=== PATIENT | male | born 1955 | race Two or more races ===

== ENCOUNTER 2019-01-14 12:20 | Emergency (ER) | payer OTHER ==
[2019-01-14 12:26] VITALS: TEMP 98.3; BMI 26.3
--- NOTE | 2019-01-14 12:52 | PDOC ---
History of Present Illness - General Chief Complaint: Pain Stated Complaint: left knee pain Time Seen by Provider: 01/14/19 12:25 History Source: Patient Exam Limitations: No Limitations - History of Present Illness Initial Comments: 01/14/19 12:50 63M with PMH of HTN and HLD who presents with L knee pain. The patient states that he was in his normal state of health yesterday and woke up this morning with L knee pain. He describes a sharp, nonradiating, atraumatic knee pain which is gradually worsening. He denies changes in diet, alcohol, trauma, and extraneous activity on his knee. He denies fever, chills, redness, swelling, CP , and SOB. He has never had these symptoms in the past. Past History - Past Medical History Allergies/Adverse Reactions: Allergies Allergy/AdvReac Type Severity Reaction Status Date / Time No Known Allergies Allergy Verified 01/14/19 12:22 Home Medications: Ambulatory Orders Atorvastatin Ca [Lipitor] 20 mg PO HS 01/14/19 Metoprolol Tartrate 50 mg PO HS 01/14/19 COPD: No HTN: Yes Hypercholesterolemia: Yes - Suicide/Smoking/Psychosocial Hx Smoking History: Never smoked Hx Alcohol Use: No Drug/Substance Use Hx: No Review of Systems - Review of Systems Able to Perform ROS?: Yes Comments:: 01/14/19 13:22 GENERAL/CONSTITUTIONAL: No fever or chills. No weakness. HEAD, EYES, EARS, NOSE AND THROAT: No change in vision. No ear pain or discharge. No sore throat. CARDIOVASCULAR: No chest pain, palpitations, or lightheadedness. RESPIRATORY: No cough, wheezing, shortness of breath, or hemoptysis. GASTROINTESTINAL: No nausea, vomiting, diarrhea, constipation, or abdominal pain. GENITOURINARY: No dysuria, frequency, hematuria, or change in urination. MUSCULOSKELETAL: + for L knee pain. No muscle swelling or pain. No neck or back pain. SKIN: No rash or lesions. NEUROLOGIC: No headache, numbness, tingling, focal weakness, loss of consciousness, or change in strength/sensation. Is the patient limited [place]adian proficient: No *Physical Exam - Vital Signs Last Vital Signs Temp Pulse Resp BP Pulse Ox 98.3 F 75 18 191/111 H 99 01/14/19 12:21 01/14/19 12:21 01/14/19 12:21 01/14/19 12:21 01/14/19 12:21 - Physical Exam Comments: 01/14/19 13:28 GENERAL: Well developed, well nourished. Awake and alert. No acute distress. HEENT: Normocephalic, atraumatic. Hearing grossly normal. Moist mucous membranes. MUSCULOSKELETAL: TTP over patellar tendon with mild swelling. No popliteal TTP. No erythema or warmth to touch. Normal passive range of motion at all joints. EXTREMITIES: No cyanosis. No clubbing. No edema. No calf tenderness or swelling. SKIN: Warm and dry. Normal capillary refill. No rashes. No jaundice. NEUROLOGICAL: Alert, awake, appropriate. Cranial nerves 2-12 grossly intact. Normal speech. Gait is ataxic. PSYCHIATRIC: Cooperative. Good eye contact. Appropriate mood and affect. ED Treatment Course - RADIOLOGY Radiology Studies Ordered: Category Date Time Status KNEE 3 POS-LEFT [RAD] Stat Radiology 01/14/19 12:26 Ordered Medical Decision Making - Medical Decision Making 01/14/19 13:31 63M with PMH of HTN and HLD who presents with atraumatic L knee pain concerning for arthritis, gout, pseudogout, patellar tendonitis. Pending XR. 01/14/19 14:11 XR negative for fracture. Pt placed in knee immobilizer with crutches. Will f/u with ortho. *DC/Admit/Observation/Transfer Diagnosis at time of Disposition: Knee pain, acute Qualifiers: Laterality: left Qualified Code(s): M25.562 - Pain in left knee - Discharge Dispostion Disposition: HOME Condition at time of disposition: Stable Decision to Admit order: No - Referrals Referrals: Zarina Voss MD [Primary Care Provider] - Forrest Roberts DO [Staff Physician] - Dale Hernandez MD [Staff Physician] - Herberth Espinoza MD [Staff Physician] - - Patient Instructions Printed Discharge Instructions: DI for Knee Pain Additional Instructions: Your ER visit is not complete until your follow up with your primary care physician. Please follow up with your primary care physician in 1-2 days. Please follow up with one of the orthopedic surgeons listed in 1 week for your knee. Please return to the ER if you have any signs or symptoms of chest pain, shortness of breath, uncontrollable fever, chills, nausea, vomiting, numbness, tingling, or weakness in any part of your body, changes in vision, or slurred speech. Please return to the ER if symptoms persist, worsen, or new symptoms arise. - Post Discharge Activity
[2019-01-14] MEDS ORDERED: KETOROLAC TROMETHAMINE 60 MG/2 ML VIAL IM ONE (13:05)
--- NOTE | 2019-01-14 13:11 | PDOC ---
Attending Attestation - Resident Resident Name: Carter Pittman - ED Attending Attestation I have performed the following: I have examined & evaluated the patient, The case was reviewed & discussed with the resident, I agree w/resident's findings & plan, Exceptions are as noted - HPI HPI: 01/14/19 14:07 63yo male with L knee pain. No trauma. Pain over the patella tendon and at the insertion site. No redness mild soft tissue swelling, no effusion palpated. No calf or posterior knee ttp. No recent travel. No rashes. No pets. No hiking. No other complaints. - Physicial Exam PE: 01/14/19 14:08 Gen: aaox3, uncomfortable heart: +s1s2 reg lungs: cta b/l abd: soft, nt/nd +bs ext: L knee ttp anteriorly over the patella tendon, limited ROM secondary to pain, but is able to range the knee. sensation intact, no calf ttp, no ttp along the tibia or fibula, ttp over the patella tendon, but tendon intact - Medical Decision Making 01/14/19 13:11 I, Dr. Ely Almanza, DO, attest that this document has been prepared under my direction and personally reviewed by me in its entirety. I further attest, that it accurately reflects all work, treatment, procedures and medical decision -making performed by me. 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
[2019-01-14] MEDS ORDERED: KETOROLAC TROMETHAMINE 60 MG/2 ML VIAL ONE (13:14)
[2019-01-14] MEDS ORDERED: LISINOPRIL 20 MG TABLET (FP) PO ONE (14:11)
[2019-01-14 14:14] VITALS: BP 160/94; PULSE 64
[2019-01-14] MEDS ORDERED: LISINOPRIL 5 MG TABLET (FP) ONE (14:15)
== END 2019-01-14 14:24 | disposition home or self-care (01) ==
LOC: FER 12:20
PROC: 3E0233Z Introduction of Anti-inflammatory into Muscle, Percutaneous Approach (ICD-10-PCS; principal; 2019-01-14)
DX: M25.562 Pain in left knee (principal); I10 Essential (primary) hypertension; E78.5 Hyperlipidemia, unspecified
CPT/HCPCS: 73562-TC-LT-FY; 99282-25

== ENCOUNTER 2019-05-19 17:05 | Emergency (ER) | payer OTHER ==
[2019-05-19 17:27] VITALS: TEMP 99.1; BMI 25.8
[2019-05-19] MEDS ORDERED: KETOROLAC TROMETHAMINE 30 MG/1 ML VIAL IVPUSH ONE (17:54)
[2019-05-19] MEDS ORDERED: KETOROLAC TROMETHAMINE 30 MG/1 ML VIAL ONE (18:07)
[2019-05-19 18:21] LABS: BASO % 0.5 % (0-2.0); EOS % 0.7 % (0-4.5); HEMATOCRIT 46.7 % (35.4-49); HEMOGLOBIN 15.6 GM/dl (11.7-16.9); MCH 30.1 pg (25.7-33.7); MCHC 33.4 g/dl (32.0-35.9); MEAN CELL VOLUME 90.2 fl (80-96); MONO % 4.5 % (3.8-10.2); NEUT % 76.3 % (42.8-82.8); PLATELET COUNT 217 K/MM3 (134-434); RBC 5.17 M/mm3 (4.00-5.60); RDW 12.6 % (11.9-15.9); WHITE BLOOD COUNT 8.1 K/mm3 (4.0-10.8)
[2019-05-19 18:29] LABS: ALBUMIN 4.1 g/dl (3.4-5.0); BILIRUBIN,TOTAL 1.1 mg/dl (0.2-1); CALCIUM 9.6 mg/dl (8.5-10); CREATININE 1.2 mg/dl (0.55-1.3); POTASSIUM 3.7 mmol/L (3.5-5.1)
[2019-05-19 18:38] LABS: EPITHELIAL CELLS FEW /hpf
--- NOTE | 2019-05-19 18:56 | PDOC ---
Documentation entered by Catrina Polanco SCRIBE, acting as scribe for Devorah Marino MD. Devorah Marino MD: This documentation has been prepared by the scribe, Catrina Polanco SCRIBE, under my direction and personally reviewed by me in its entirety. I confirm that the documentation accurately reflects all work, treatment, procedures, and medical decision making performed by me. History of Present Illness - General Chief Complaint: Pain Stated Complaint: ABDOMINAL PAIN History Source: Patient Exam Limitations: No Limitations - History of Present Illness Initial Comments: 05/19/19 18:28 The patient is a 63-year-old male, with a past medical history of HTN and HLD, who presents to the ED with suprapubic pain and dysuria that began last night. He denies any penile discharge or testicular pain. Denies any hematuria or back pain. The patient denies any fevers, chills, nausea, vomiting, diarrhea, or constipation. Denies any chest pain, palpitations, or shortness of breath. Allergies: NKA Past History - Past Medical History Allergies/Adverse Reactions: Allergies Allergy/AdvReac Type Severity Reaction Status Date / Time No Known Allergies Allergy Verified 01/14/19 12:22 Home Medications: Ambulatory Orders Atorvastatin Ca [Lipitor] 20 mg PO HS 01/14/19 Metoprolol Tartrate 50 mg PO HS 01/14/19 COPD: No HTN: Yes Hypercholesterolemia: Yes - Suicide/Smoking/Psychosocial Hx Smoking History: Never smoked Hx Alcohol Use: No Drug/Substance Use Hx: No Review of Systems - Review of Systems Able to Perform ROS?: Yes Comments:: 05/19/19 18:29 GENERAL/CONSTITUTIONAL: No fever or chills. No weakness. HEAD, EYES, EARS, NOSE AND THROAT: No change in vision. No ear pain or discharge. No sore throat. CARDIOVASCULAR: No chest pain or shortness of breath. RESPIRATORY: No cough, wheezing, or hemoptysis. GASTROINTESTINAL: (+)Lower abdominal pain. No nausea, vomiting, diarrhea or constipation. GENITOURINARY: (+)Dysuria. No frequency. MUSCULOSKELETAL: No joint or muscle swelling or pain. No neck or back pain. SKIN: No rash NEUROLOGIC: No headache, vertigo, loss of consciousness, or change in strength/ sensation. ENDOCRINE: No increased thirst. No abnormal weight change. HEMATOLOGIC/LYMPHATIC: No anemia, easy bleeding, or history of blood clots. ALLERGIC/IMMUNOLOGIC: No hives or skin allergy. *Physical Exam - Vital Signs Last Vital Signs Temp Pulse Resp BP Pulse Ox 99.1 F 90 16 190/104 H 98 05/19/19 17:16 05/19/19 17:16 05/19/19 17:16 05/19/19 17:16 05/19/19 17:16 - Physical Exam Comments: 05/19/19 18:31 GENERAL: Awake, alert, and fully oriented, in no acute distress HEAD: No signs of trauma EYES: PERRLA, EOMI, sclera anicteric, conjunctiva clear ENT: Auricles normal inspection, hearing grossly normal, nares patent, oropharynx clear without exudates. Moist mucosa NECK: Normal ROM, supple, no lymphadenopathy, JVD, or masses LUNGS: Breath sounds equal, clear to auscultation bilaterally. No wheezes, and no crackles HEART: Regular rate and rhythm, normal S1 and S2, no murmurs, rubs or gallops ABDOMEN: (+)Suprapubic tenderness, LT > RT. Soft, normoactive bowel sounds. No guarding, no rebound. No masses EXTREMITIES: Normal range of motion, no edema. No clubbing or cyanosis. No cords, erythema, or tenderness NEUROLOGICAL: Cranial nerves II through XII grossly intact. Normal speech. SKIN: Warm, Dry, normal turgor, no rashes or lesions noted. ED Treatment Course - LABORATORY CBC & Chemistry Diagram: 05/19/19 18:00 05/19/19 18:00 - ADDITIONAL ORDERS Additional order review: Laboratory Results 05/19/19 05/19/19 18:00 18:00 Sodium 134 L Potassium 3.7 Chloride 100 Carbon Dioxide 25 Anion Gap 9 BUN 18.0 Creatinine 1.2 Est GFR (CKD-EPI)AfAm 74.66 Est GFR (CKD-EPI)NonAf 64.42 Random Glucose 222 H Calcium 9.6 Total Bilirubin 1.1 H AST 23 ALT 33 Alkaline Phosphatase 69 Total Protein 7.0 Albumin 4.1 Urine Color Yellow Urine Appearance Clear Urine pH 5.5 Urine Protein Negative Urine Glucose (UA) 1+ Urine Ketones Negative Urine Blood 3+ H Urine Nitrite Negative Urine Bilirubin Negative Urine Urobilinogen 0.2 Ur Leukocyte Esterase Trace H Urine RBC 5-10 Urine WBC 2-5 Ur Transition Epith Cell Few 05/19/19 18:00 RBC 5.17 MCV 90.2 MCHC 33.4 RDW 12.6 MPV 9.0 Neutrophils % 76.3 Lymphocytes % 18.0 Monocytes % 4.5 Eosinophils % 0.7 Basophils % 0.5 - RADIOLOGY Radiology Studies Ordered: Category Date Time Status ABDOMEN & PELVIS CT W/O CONTR [CT] Stat CT Scan 05/19/19 18:24 Ordered - Medications Given in the ED: ED Medications Discontinued Medications Generic Name Dose Route Start Last Admin Trade Name Freq PRN Reason Stop Dose Admin Ketorolac Tromethamine 30 mg 05/19/19 17:54 05/19/19 18:09 Toradol Injection - IVPUSH 05/19/19 17:55 30 mg ONCE ONE Administration Medical Decision Making - Medical Decision Making 05/19/19 18:46 Pt presents to the ED complaining of a one day history of suprapubic pain and dysuria. Differential included UTI, nephrolithiasis, less likely other intraabdominal pathology. Will check labs, UA and CT non contrast to rule out stone. Will give pain control. *DC/Admit/Observation/Transfer - Discharge Dispostion Condition at time of disposition: Good - Referrals Referrals: Zarina Voss MD [Primary Care Provider] - - Patient Instructions - Post Discharge Activity
[2019-05-19] MEDS ORDERED: ONDANSETRON 4 MG/2 ML VIAL IVPUSH ONE (20:28)
[2019-05-19] MEDS ORDERED: ONDANSETRON 4 MG/2 ML VIAL ONE (20:30)
[2019-05-19] MEDS ORDERED: CEFTRIAXONE 2 GM-D5W BAG 2 GM/50 ML BAG IVPB ONE (20:30)
--- NOTE | 2019-05-19 22:06 | PDOC ---
*Physical Exam - Vital Signs Last Vital Signs Temp Pulse Resp BP Pulse Ox 99.1 F 90 16 190/104 H 98 05/19/19 17:16 05/19/19 17:16 05/19/19 17:16 05/19/19 17:16 05/19/19 17:16 ED Treatment Course - LABORATORY CBC & Chemistry Diagram: 05/19/19 18:00 05/19/19 18:00 - ADDITIONAL ORDERS Additional order review: Laboratory Results 05/19/19 05/19/19 18:00 18:00 Sodium 134 L Potassium 3.7 Chloride 100 Carbon Dioxide 25 Anion Gap 9 BUN 18.0 Creatinine 1.2 Est GFR (CKD-EPI)AfAm 74.66 Est GFR (CKD-EPI)NonAf 64.42 Random Glucose 222 H Calcium 9.6 Total Bilirubin 1.1 H AST 23 ALT 33 Alkaline Phosphatase 69 Total Protein 7.0 Albumin 4.1 Urine Color Yellow Urine Appearance Clear Urine pH 5.5 Urine Protein Negative Urine Glucose (UA) 1+ Urine Ketones Negative Urine Blood 3+ H Urine Nitrite Negative Urine Bilirubin Negative Urine Urobilinogen 0.2 Ur Leukocyte Esterase Trace H Urine RBC 5-10 Urine WBC 2-5 Ur Transition Epith Cell Few 05/19/19 18:00 RBC 5.17 MCV 90.2 MCHC 33.4 RDW 12.6 MPV 9.0 Neutrophils % 76.3 Lymphocytes % 18.0 Monocytes % 4.5 Eosinophils % 0.7 Basophils % 0.5 - Medications Given in the ED: ED Medications Discontinued Medications Generic Name Dose Route Start Last Admin Trade Name Freq PRN Reason Stop Dose Admin Ceftriaxone Sodium 2 gm in 50 mls @ 100 mls/hr 05/19/19 20:30 05/19/19 21:22 Ceftriaxone 2 Gm-D5w Bag IVPB 05/19/19 20:59 100 mls/hr ONCE ONE Administration Metronidazole 500 mg in 100 mls @ 100 mls/hr 05/19/19 20:31 05/19/19 20:35 Flagyl 500mg Premixed Ivpb - IVPB 05/19/19 21:30 100 mls/hr ONCE ONE Administration Ketorolac Tromethamine 30 mg 05/19/19 17:54 05/19/19 18:09 Toradol Injection - IVPUSH 05/19/19 17:55 30 mg ONCE ONE Administration Ondansetron HCl 4 mg 05/19/19 20:28 05/19/19 20:35 Zofran Injection IVPUSH 05/19/19 20:29 4 mg ONCE ONE Administration Progress Note - Progress Note Progress Note: Care of this patient received from Dr. Marino. CT abdomen and pelvis without contrast performed. Preliminary interpretation by Imaging accordion repairer: Proximal sigmoid diverticulitis with extensive soft tissue inflammatory changes. There is bowel thickening present. Although there are tiny extraluminal air locules within the interstitium, no extensive free air consistent with pneumoperitoneum is present. No air-fluid level consistent with abscess is identified either. appendix is normal. No evidence of bowel obstruction noted There is no obstructing ureteral stone on either side. There is a large staghorn calculus in the right kidney, lower pole. Left kidney is unremarkable. Groundglass opacities within the right lower lung is identified but no other infiltrates/effusion seen in this area. Biliary tract is grossly unremarkable as is liver, pancreas, spleen and adrenal glands. Results discussed with the patient. He has no known previous history of diverticular disease. He reports that his pain is now largely resolved although he still has some nausea. Zofran 4 mg IV given. Ceftriaxone 2 g IV as well as metronidazole 500 mg IV administered. After antibiotics and antiemetic given, the patient reports that he continues to feel relatively comfortable with no further nausea. Patient will be discharged with instructions to maintain clear liquids to clear diet and prescription for Augmentin 875/125 twice a day sent to his pharmacy. He should plan on contacting in the a.m. and follow-up within the next 48 hours. The patient should return to the emergency room immediately if he has worsening pain, nausea/vomiting, high fever. *DC/Admit/Observation/Transfer Diagnosis at time of Disposition: Acute diverticulitis - Discharge Dispostion Disposition: HOME Condition at time of disposition: Stable - Prescriptions Prescriptions: Amox-Tr/K Cl [Augmentin - 875Mg Tablet] 1 tab PO BID #20 tablet - Referrals Referrals: Zarina Voss MD [Primary Care Provider] - Call tomorrow - Patient Instructions Printed Discharge Instructions: Diverticulitis Additional Instructions: Light diet Augmentin 875/125 twice a day for 10 days; take with food Ibuprofen/naproxen/acetaminophen as needed for pain (take ibuprofen/naproxen with food) Call 's office in a.m. and arrange follow-up within the next 48 hours Return to ER if you have vomiting/more severe pain/high fever - Post Discharge Activity
[2019-05-19 22:38] VITALS: BP 145/94; PULSE 104
== END 2019-05-19 23:13 | disposition home or self-care (01) ==
LOC: FER 17:05 → SUPCPDRO 17:05 → FER 23:13
PROC: 3E03329 Introduction of Other Anti-infective into Peripheral Vein, Percutaneous Approach (ICD-10-PCS; principal; 2019-05-19)
PROC: 3E0333Z Introduction of Anti-inflammatory into Peripheral Vein, Percutaneous Approach (ICD-10-PCS; 2019-05-19)
PROC: 3E033GC Introduction of Other Therapeutic Substance into Peripheral Vein, Percutaneous Approach (ICD-10-PCS; 2019-05-19)
DX: K57.92 Diverticulitis of intestine, part unspecified, without perforation or abscess without bleeding (principal)
CPT/HCPCS: 36415; 74176-TC; 80053; 81003; 81015; 85025; 99283-25